=== PATIENT | female | born 1970 | race African-American/Black ===

== ENCOUNTER 2021-07-12 13:34 | Emergency (ER) | payer OTHER ==
[~2021-07-12] VITALS: Ht 160 cm; Wt 80.3 kg
[2021-07-12] MEDS ORDERED: BUTALB-ACETAMI1 EACH PO (18:28)
[2021-07-12] MEDS ORDERED: MEDI-MECLIZINE25 MG PO (18:28)
== END 2021-07-12 18:45 | disposition home or self-care (01) ==
LOC: ER 13:34
DX: R51.9 Headache, unspecified (principal); R11.10 Vomiting, unspecified; R42 Dizziness and giddiness; Z03.818 Encounter for observation for suspected exposure to other biological agents ruled out